=== PATIENT | female | born 1970 | race African-American/Black ===

== ENCOUNTER → 2024-04-30 18:11 | Outpatient (REF) | payer BC, SELFPAY | LOC: WDC 18:11 | PROVIDERS: ATTENDING PHYSICIAN Nurse Practitioner Family; FAMILY PHYSICIAN Family Medicine | DX: Z12.31 Encounter for screening mammogram for malignant neoplasm of breast (principal) | CPT/HCPCS: 77063; 77067 ==

== ENCOUNTER → 2024-09-03 11:12 | Outpatient (REF) | payer BC, SELFPAY | LOC: DHSLP 11:12 | PROVIDERS: ATTENDING PHYSICIAN Internal Medicine; FAMILY PHYSICIAN Internal Medicine Critical Care Medicine | DX: G47.33 Obstructive sleep apnea (adult) (pediatric) (principal) | CPT/HCPCS: 95800 ==